=== PATIENT | female | born 1965 | race Hispanic/Latino ===

== ENCOUNTER 2023-08-18 11:44 | Emergency (ER) | payer OTHER ==
[~2023-08-18] VITALS: Ht 149.9 cm; Wt 104.3 kg
[2023-08-18 12:32] LABS: SARS-CoV-2, RNA, NAAT NEGATIVE SARS CoV-2 (NEGATIVE)
[2023-08-18 12:34] LABS: RAPID GROUP A STREP negative (NEGATIVE)
[2023-08-18 12:41] LABS: INFLUENZA TYPE B Negative For Type B (NEGATIVE)
[2023-08-18 12:48] LABS: INFLUENZA TYPE A Positive For Type A (NEGATIVE)
[2023-08-18] MEDS ORDERED: OSEL75 PO (13:03)
[2023-08-18] MEDS ORDERED: FLUT16H NASAL (13:03)
[2023-08-18] MEDS ORDERED: BENZ200C53 PO (13:03)
[2023-08-18 13:18] LABS: APPEARANCE,URINE CLEAR (CLEAR); BILIRUBIN,URINE NEGATIVE (NEGATIVE); COLOR,URINE LIGHT-YELLOW (YELLOW); GLUCOSE, URINE (UA) NEGATIVE (NEGATIVE); KETONES,URINE NEGATIVE (NEGATIVE); LEUKOCYTE ESTERASE ,URINE NEGATIVE Leu/uL (NEGATIVE); NITRATE,URINE NEGATIVE (NEGATIVE); OCCULT BLOOD,URINE SMALL (NEGATIVE); PH,URINE 6.5 (5.0-8.0); PROTEIN,URINE NEGATIVE (NEGATIVE); UROBILINOGEN,URINE 0.2 mg/dL (0.2-1.0)
[2023-08-18 13:30] LABS: ADD UA MICROSCOPIC YES
[2023-08-18 13:32] LABS: BACTERIA,URINE RARE /HPF (None Seen); MUCUS,URINE RARE LPF (None Seen); SQUAMOUS EPITHELIAL CELL,UR RARE /HPF (0-2); WBC,URINE 0-1 /HPF (0-1)
[2023-08-18 14:25] VITALS: BP 152/79; PULSE 95; RESP 18; O2SAT 95
== END 2023-08-18 14:44 | disposition home or self-care (01) ==
LOC: EDH 11:44
DX: J10.1 Influenza due to other identified influenza virus with other respiratory manifestations (principal); B34.9 Viral infection, unspecified; I10 Essential (primary) hypertension; Z20.822 Contact with and (suspected) exposure to COVID-19; Z90.49 Acquired absence of other specified parts of digestive tract; Z79.899 Other long term (current) drug therapy; Z98.890 Other specified postprocedural states
CPT/HCPCS: 99283; 87635; 87880; 87804 ×2; 81001; C9803